=== PATIENT | female | born 1970 | race Two or more races ===

== ENCOUNTER 2020-03-25 13:30 | Outpatient (CLI) | payer BC | END 2020-03-25 23:59 | disposition home or self-care (01) | LOC: WOU 13:30 | PROVIDERS: ATTEND Surgery | DX: R92.8 Other abnormal and inconclusive findings on diagnostic imaging of breast (principal); N63.10 Unspecified lump in the right breast, unspecified quadrant; N63.21 Unspecified lump in the left breast, upper outer quadrant | CPT/HCPCS: 19083; 19084; 88305; 88341; 88342; J3490 ==

== ENCOUNTER 2020-04-08 11:48 | Outpatient (CLI) | payer BC | END 2020-04-08 23:59 | disposition home or self-care (01) | LOC: WOU 11:48 | PROVIDERS: ATTEND Surgery | DX: N60.22 Fibroadenosis of left breast (principal); N60.21 Fibroadenosis of right breast | CPT/HCPCS: G0463 ==